=== PATIENT | female | born 1990 | race Asian ===

== ENCOUNTER 2018-11-12 18:50 | Emergency (ER) | payer OTHER ==
[~2018-11-12] VITALS: Ht 165.1 cm; Wt 115.7 kg
[2018-11-12 19:00] VITALS: BP 133/81; TEMP 97
== END 2018-11-12 20:45 | disposition home or self-care (01) ==
LOC: ED 18:50
DX: N39.0 Urinary tract infection, site not specified (principal)
CPT/HCPCS: 81000; 87077; 87086; 87088; 87186; 96372; 99282; J0696

== ENCOUNTER 2019-03-23 19:20 | Emergency (ER) | payer OTHER ==
[~2019-03-23] VITALS: Ht 175.3 cm; Wt 117.0 kg
[2019-03-23 20:23] LABS: PLATELET COUNT 307 K/uL (152-353)
[2019-03-23 20:42] LABS: POTASSIUM 3.5 mmol/L (3.6-5.2)
[2019-03-23 21:06] VITALS: BP 150/91; TEMP 98.7
== END 2019-03-23 21:06 | disposition home or self-care (01) ==
LOC: ED 19:20
PROVIDERS: Emergency Medicine
DX: N39.0 Urinary tract infection, site not specified (principal); N30.90 Cystitis, unspecified without hematuria
CPT/HCPCS: 36415; 80053; 81000; 85027; 99283

== ENCOUNTER 2019-11-29 09:02 | Emergency (ER) | payer OTHER ==
[~2019-11-29] VITALS: Ht 175.3 cm; Wt 126.1 kg
[2019-11-29 11:01] LABS: PLATELET COUNT 236 K/uL (152-353)
[2019-11-29 11:08] LABS: POTASSIUM 3.5 mmol/L (3.6-5.2)
[2019-11-29 14:07] VITALS: BP 130/89; TEMP 98.3
== END 2019-11-29 14:07 | disposition home or self-care (01) ==
LOC: ED 09:02
PROVIDERS: Family Medicine
DX: J18.9 Pneumonia, unspecified organism (principal); R79.89 Other specified abnormal findings of blood chemistry; U07.1 COVID-19
CPT/HCPCS: 80053; 81000; 81025; 85027; 85379; 87502; 87635; 87651; 99283; 99284; Q9963; U0003

== ENCOUNTER 2020-12-08 09:04 | Emergency (ER) | payer OTHER ==
[~2020-12-08] VITALS: Ht 175.3 cm; Wt 126.1 kg
[2020-12-08 11:08] VITALS: BP 122/80; TEMP 98.7
== END 2020-12-08 11:09 | disposition home or self-care (01) ==
LOC: ED 09:04
DX: M54.59 Other low back pain (principal); M79.18 Myalgia, other site
CPT/HCPCS: 81000; 96372; 99283; J1100; J1885

== ENCOUNTER 2021-05-20 10:45 | Outpatient (CLI) | payer BC | END 2021-05-20 19:10 | disposition home or self-care (01) | LOC: MAMMO 10:45 | PROVIDERS: ATTEND Registered Nurse | DX: N64.4 Mastodynia (principal) ==

== ENCOUNTER 2021-12-14 08:10 | Emergency (ER) | payer BC ==
[~2021-12-14] VITALS: Ht 175.3 cm; Wt 131.5 kg
[2021-12-14 09:30] VITALS: BP 142/94; TEMP 97
== END 2021-12-14 09:40 | disposition home or self-care (01) ==
LOC: ED 08:10
DX: J06.9 Acute upper respiratory infection, unspecified (principal); Z20.828 Contact with and (suspected) exposure to other viral communicable diseases
CPT/HCPCS: 87502; 87651; 99283

== ENCOUNTER 2022-05-02 13:29 | Outpatient (CLI) | payer BC | END 2022-05-02 22:56 | disposition home or self-care (01) | LOC: MRI 13:29 | PROVIDERS: ATTEND Nurse Practitioner Family | DX: M54.59 Other low back pain (principal) ==